=== PATIENT | female | born 1970 | race Caucasian/White ===

== ENCOUNTER 2018-01-06 18:11 | Emergency (ER) | payer MEDICAID ==
[~2018-01-06] VITALS: Ht 177.8 cm; Wt 102.7 kg
[~2018-01-06 18:11] MED LIST: CARV3.1289 PO; IBUP-1984 PO; ONDA8TAB9 PO
[2018-01-06] MEDS ORDERED: prednisone 10mg tablet PO SCH (19:00)
[2018-01-06] MEDS ORDERED: predniSONE 20 mg tablet PO SCH (19:08)
[2018-01-06] MEDS ORDERED: PRED20TA PO (21:45)
[2018-01-06] MEDS ORDERED: DIPH25CA83 PO (21:45)
[2018-01-06] MEDS ORDERED: EPIN0.3P8 IM (21:45)
[2018-01-06] MEDS ORDERED: FAMO-128 PO (21:45)
[2018-01-06 22:05] VITALS: BP 134/87
== END 2018-01-06 22:06 | disposition home or self-care (01) ==
LOC: ER 18:12
DX: T78.1XXA Other adverse food reactions, not elsewhere classified, initial encounter (principal); N39.0 Urinary tract infection, site not specified; G43.909 Migraine, unspecified, not intractable, without status migrainosus; J45.909 Unspecified asthma, uncomplicated; F12.10 Cannabis abuse, uncomplicated; F15.10 Other stimulant abuse, uncomplicated; Z59.0 Homelessness; Z90.49 Acquired absence of other specified parts of digestive tract; Z88.2 Allergy status to sulfonamides; Z88.5 Allergy status to narcotic agent; Z91.02 Food additives allergy status; Z88.8 Allergy status to other drugs, medicaments and biological substances; Z87.891 Personal history of nicotine dependence; Z79.899 Other long term (current) drug therapy; X58.XXXA Exposure to other specified factors, initial encounter
CPT/HCPCS: 82948; 93005; 99283; J7512

== ENCOUNTER 2018-10-06 13:34 | Emergency (ER) | payer MEDICAID ==
[~2018-10-06] VITALS: Ht 177.8 cm; Wt 90.0 kg
[~2018-10-06 13:34] MED LIST changes: +ACET1TAB12 PO; -CARV3.1289 PO; -IBUP-1984 PO; -ONDA8TAB9 PO
[2018-10-06] MEDS ORDERED: HYDROcodone/acetaminophen 10/325mg tab PO ONE (16:30)
[2018-10-06] MEDS ORDERED: piperacillin/tazo 3.375gm/50ml 50 ML IV ONE (16:30)
[2018-10-06] MEDS ORDERED: HYDR-4353 PO (16:43)
[2018-10-06] MEDS ORDERED: BACDS PO (16:43)
[2018-10-06] MEDS ORDERED: DOXY100C43 PO (16:43)
[2018-10-06 17:34] VITALS: BP 104/69
== END 2018-10-06 17:37 | disposition home or self-care (01) ==
LOC: ER 13:34
DX: L03.317 Cellulitis of buttock (principal); F12.90 Cannabis use, unspecified, uncomplicated; F15.90 Other stimulant use, unspecified, uncomplicated; F17.200 Nicotine dependence, unspecified, uncomplicated; G43.909 Migraine, unspecified, not intractable, without status migrainosus; J45.909 Unspecified asthma, uncomplicated; Z90.49 Acquired absence of other specified parts of digestive tract; Z98.890 Other specified postprocedural states; Z59.0 Homelessness; Z88.8 Allergy status to other drugs, medicaments and biological substances; Z88.2 Allergy status to sulfonamides; Z88.5 Allergy status to narcotic agent; Z88.6 Allergy status to analgesic agent
CPT/HCPCS: 96365; 99284; J2543